=== PATIENT | male | born 1985 | race Caucasian/White ===

== ENCOUNTER 2018-08-23 10:08 | Emergency (ER) | payer OTHER, BC ==
[2018-08-23 10:16] VITALS: BMI 43.0
--- NOTE | 2018-08-23 10:49 | ED PDOC ---
HPI: Abdomen Time Seen by Provider: 08/23/18 10:36 History Per: Patient Onset/Duration Of Symptoms: Days (2) Current Symptoms Are (Timing): Intermittent Episodes Severity: Mild Location Of Pain/Discomfort: LLQ Quality Of Discomfort: Unable To Describe Associated Symptoms: denies: Fever, Nausea, Diarrhea Additional Complaint(s): Spit/vomited small amount red blood last night. Has had intermittent episodes over past 2 weeks. Denies cough or chest pain or SOB. 1 episode LLQ abd pain. Denies hematochezia or melena. Denies diarrhea or constipation Past Medical History Vital Signs: Last Vital Signs Temp 97 F L 08/23/18 10:15 Pulse 60 08/23/18 10:15 Resp BP 121/85 08/23/18 10:15 Pulse Ox 99 08/23/18 10:15 - Medical History PMH: No Chronic Diseases - Family History Family History: States: Unknown Family Hx - Home Medications Home Medications: Ambulatory Orders Medication Instructions Recorded Pantoprazole Sodium [Protonix] 40 mg PO DAILY #30 tablet. 08/23/18 - Allergies Allergies/Adverse Reactions: Allergies Allergy/AdvReac Type Severity Reaction Status Date / Time No Known Allergies Allergy Verified 08/23/18 10:46 Review of Systems ROS Statement: Except As Marked, All Systems Reviewed And Found Negative Constitutional: Negative for: Fever Gastrointestinal: Positive for: Abdominal Pain, Hematemesis. Negative for: Melena, Hematochezia Physical Exam - Reviewed Nursing Documentation Reviewed: Yes Vital Signs Reviewed: Yes - Physical Exam Appears: Positive for: Non-toxic, No Acute Distress Head Exam: Positive for: ATRAUMATIC, NORMAL INSPECTION, NORMOCEPHALIC Skin: Positive for: Normal Color, Warm, DRY Eye Exam: Positive for: EOMI, Normal appearance, PERRL ENT: Positive for: Normal ENT Inspection Neck: Positive for: Normal, Painless ROM Cardiovascular/Chest: Positive for: Regular Rate, Rhythm Respiratory: Positive for: CNT, Normal Breath Sounds Gastrointestinal/Abdominal: Positive for: Soft, Tenderness (Mild LLQ) Back: Positive for: Normal Inspection Extremity: Positive for: Normal ROM Neurological/Psych: Positive for: Awake, Alert, Normal Tone - Laboratory Results Result Diagrams: 08/23/18 11:38 08/23/18 11:38 - ECG O2 Sat by Pulse Oximetry: 99 Medical Decision Making Medical Decision Making: Results of labs and CT and CXR discussed with pt. Stressed need for GI follow up andm to return to ED immediately if increased bleeding. Disposition - Clinical Impression Clinical Impression: GERD (gastroesophageal reflux disease) - Patient ED Disposition Is Patient to be Admitted: No Counseled Patient/Family Regarding: Studies Performed, Diagnosis, Need For Followup, Rx Given - Disposition Referrals: Nehemias Butler MD, PhD [Staff Provider] - Disposition: Routine/Home Disposition Time: 13:55 Condition: FAIR Prescriptions: Pantoprazole Sodium [Protonix] 40 mg PO DAILY #30 tablet.dr Instructions: Acid Reflux (Gastroesophageal Reflux Disease) in Adults
--- NOTE | 2018-08-23 11:30 | RAD ---
Date of service: 08/23/2018 HISTORY: Hematemesis COMPARISON: No prior. TECHNIQUE: Chest PA and lateral views FINDINGS: LUNGS: No active pulmonary disease. PLEURA: No significant pleural effusion identified. No pneumothorax apparent. CARDIOVASCULAR: No aortic atherosclerotic calcification present. Normal cardiac size. No pulmonary vascular congestion. OSSEOUS STRUCTURES: No significant abnormalities. VISUALIZED UPPER ABDOMEN: Normal. OTHER FINDINGS: None. IMPRESSION: No active disease.
[2018-08-23 11:47] LABS: BASO % 0.5 % (0.0-2.0); EOS # 0.1 K/uL (0.0-0.7); EOS % 2.1 % (0.0-4.0); LYMPH # 1.8 K/uL (1.0-4.3); LYMPH % 24.7 % (20.0-40.0); MEAN CELL VOLUME 86.2 fl (80.0-94.0); MEAN CORPUSCULAR HEMOGLOBIN 30.1 pg (27.0-31.0); MEAN CORPUSCULAR HGB CONC 34.9 g/dL (33.0-37.0); MEAN PLATELET VOLUME 8.9 fl (7.2-11.7); MONO # 0.6 K/uL (0.0-0.8); MONO % 8.9 % (0.0-10.0); NEUT # 4.6 K/uL (1.8-7.0); NEUT % 63.8 % (50.0-75.0); NRBC % 0.1 % (0.0-0.0); RBC 4.98 Mil/uL (4.40-5.90); RED CELL DISTRIBUTION WIDTH 13.1 % (11.5-14.5); WHITE BLOOD COUNT 7.2 K/uL (4.8-10.8)
[2018-08-23 11:53] LABS: INR 1.1; PROTHROMBIN TIME 12.2 Seconds (9.8-13.1)
[2018-08-23 11:56] LABS: ALB/GLOB RATIO 1.3 (1.0-2.1); ALBUMIN 4.5 g/dL (3.5-5.0); ALT/SGPT 35 U/L (21-72); AST/SGOT 30 U/L (17-59); BLOOD UREA NITROGEN 16 mg/dl (9-20); CALCIUM 9.7 mg/dL (8.4-10.2); GFR NON-AFRICAN AMERICAN > 60
[2018-08-23] MEDS ORDERED: Iohexol 300 100 ML IJ ONE (12:26)
[2018-08-23] MEDS ORDERED: Sodium Chloride 0.9% 50 ML IV ONE (12:26)
--- NOTE | 2018-08-23 13:43 | CT ---
Date of service: 08/23/2018 PROCEDURE: CT abdomen pelvis HISTORY: Abd pain COMPARISON: None. TECHNIQUE: Contiguous axial images of the abdomen and pelvis performed following intravenous injection of approximately 95 cc Omnipaque 300 contrast material. Additional 2D sagittal and coronal reformats generated. Radiation dose: Total exam DLP = 1433.29 mGy-cm. This CT exam was performed using one or more of the following dose reduction techniques: Automated exposure control, adjustment of the mA and/or kV according to patient size, and/or use of iterative reconstruction technique. FINDINGS: LOWER THORAX: Heart size normal. No significant pericardial effusion. There is a tiny hiatal hernia. Minor linear scarring changes seen in the left lingular region LIVER: Liver is enlarged measuring over 20 cm in CC dimension. Moderate fatty hepatic infiltration. No obvious hepatic mass collection or calcification. Portal and splenic veins are opacified. GALLBLADDER AND BILE DUCTS: Gallbladder is physiologically distended. No evidence of intraluminal gallbladder calculi. PANCREAS: Unremarkable. No mass. No ductal dilatation. Pancreas is slightly atrophic and fatty replaced. No pancreatic masses collections or calcifications. SPLEEN: Unremarkable. No splenomegaly. ADRENALS: No adrenal lesions. KIDNEYS AND URETERS: Kidneys demonstrate symmetric nephrograms. No evidence of nephrolithiasis or hydronephrosis BLADDER: Urinary bladder is physiologically distended. No evidence of intraluminal urinary bladder calculi. REPRODUCTIVE: Unremarkable. APPENDIX: Normal appendix. BOWEL: Evaluation of the bowel slightly limited due to the lack of oral contrast material. Stomach is incompletely distended with slight thick-walled appearance. Visualized loops of small bowel exhibit normal contour and caliber. No evidence of acute mechanical small bowel obstruction. Stool and air seen throughout the right colon with relative collapse of most of the remaining colon. Few scattered colonic diverticula. No radiographic evidence of acute diverticulitis. PERITONEUM: Unremarkable. No fluid collection. No free air. Small fat containing umbilical hernia. LYMPH NODES: There are a few scattered small mesenteric lymph nodes seen the right lower quadrant of the abdomen. Rule out mild mesenteric adenitis VASCULATURE: Unremarkable. No aortic aneurysm. No aortic atherosclerotic calcification or mural plaque present. BONES: Minor multilevel degenerative spondylosis of the lower thoracic and lumbar spine. OTHER FINDINGS: None. IMPRESSION: Hepatomegaly with moderate fatty infiltration. Few scattered colonic diverticula without radiographic evidence of acute diverticulitis. Few skull small mesenteric lymph nodes right lower quadrant of the abdomen; rule out mild mesenteric adenitis.
[2018-08-23 14:15] VITALS: BP 125/67; PULSE 61; RESP 18; TEMP 97.9; O2SAT 98
== END 2018-08-23 14:13 | disposition home or self-care (01) ==
LOC: H.ER 10:08
DX: K21.9 Gastro-esophageal reflux disease without esophagitis (principal); K92.0 Hematemesis
CPT/HCPCS: 71046; 74177; 80053; 85025; 85610; 99285; Q9967